=== PATIENT | female | born 1960 | race Caucasian/White ===

== ENCOUNTER → 2018-06-19 | Outpatient (CLI) | payer OTHER ==
[~2018-06-19] MED LIST: ALLEGRA180 MG PO; ARIXTRA SUBQ; GLUCOPHAGE1000 MG PO; HYDROCODON-ACE1 EAC7 PO; LOSARTAN-HCTZ1 EACH PO; METFORMIN PO; MOBIC15 MG PO; OXYIR5 MG; PERCOCET 5-3251 EACH PO; PREMARIN0.625 MG PO; PRILOSEC 20 MG20 MG PO; PROBIOTIC1 EACH PO; PROPRANOLOL 8080 MG PO; PROVIGIL 100 M100 MG PO; VENLAFAXINE HC225 MG PO
== END ==
LOC: M.RAD 03-22 13:00
DX: Z12.31 Encounter for screening mammogram for malignant neoplasm of breast (principal)

== ENCOUNTER → 2018-06-21 | Outpatient (CLI) | payer OTHER | LOC: M.RAD 14:00 | DX: R92.8 Other abnormal and inconclusive findings on diagnostic imaging of breast (principal); N63.20 Unspecified lump in the left breast, unspecified quadrant ==

== ENCOUNTER → 2018-06-26 | Outpatient (CLI) | payer OTHER | LOC: M.RAD 07:22 | DX: Z53.8 Procedure and treatment not carried out for other reasons (principal) ==

== ENCOUNTER 2021-06-12 11:42 | Emergency (ER) | payer OTHER ==
[~2021-06-12] VITALS: Ht 172.7 cm; Wt 111.1 kg
[2021-06-12] MEDS ORDERED: HYDROCHLOROTHIA25 M1 PO (12:45)
[2021-06-12 12:46] LABS: ABSOLUTE BASOPHILS 0.1 thou/uL (0.0-0.2); ABSOLUTE EOSINOPHILS 0.2 thou/uL (0.0-0.7); ABSOLUTE LYMPHOCYTES 2.2 thou/uL (0.8-5.3); ABSOLUTE MONOCYTES 0.6 thou/uL (0.0-1.2); BASOPHILS 0.6 %; EOSINOPHILS 1.8 %; HEMATOCRIT 38.2 % (37.0-47.0); HEMOGLOBIN 12.4 gm/dL (12.0-15.0); LYMPHOCYTES 24.4 %; MCH 29.3 pg (26.0-34.0); MCHC 32.5 g/dL (28.0-37.0); MCV 90.1 fL (80.0-100.0); MONOCYTES 6.9 %; MPV 7.4 fl. (7.2-11.1); NUCLEATED RBCS 0 /100WBC; PLATELET COUNT* 305 thou/uL (150-400); POLYS 66.3 %; RBC 4.24 mil/uL (4.20-5.00); RDW-CV 13.9 % (10.5-14.5); WBC 9.1 thou/uL (4.0-11.0)
[2021-06-12] MEDS ORDERED: TOPAMAX100 MG PO (12:46)
[2021-06-12] MEDS ORDERED: LAMICTAL150 MG PO (12:48)
[2021-06-12] MEDS ORDERED: WELLBUTRIN XL300 MG PO (12:48)
[2021-06-12] MEDS ORDERED: DIAZEPAM 2MG TAB2 MG (12:49)
[2021-06-12] MEDS ORDERED: SANCTURA PO (12:49)
[2021-06-12] MEDS ORDERED: MACROBID 100 M100 M2 PO (12:50)
[2021-06-12] MEDS ORDERED: TALTZ AUTO80 MG/1 M1 (12:50)
[2021-06-12 12:53] LABS: CALCIUM 8.8 mg/dL (8.5-10.1); CREATININE 1.1 mg/dL (0.6-1.3); POTASSIUM 3.8 mmol/L (3.5-5.1)
[2021-06-12 12:57] LABS: ALBUMIN 3.5 g/dL (3.4-5.0); MAGNESIUM 2.1 mg/dL (1.8-2.4); TOTAL BILIRUBIN 0.5 mg/dL (<0.1-1.0); TOTAL PROTEIN 7.8 g/dL (6.4-8.2)
[2021-06-12 12:59] LABS: URINE BILIRUBIN NEGATIVE (Negative); URINE BLOOD NEGATIVE (Negative); URINE COLOR YELLOW; URINE GLUCOSE-RANDOM NEGATIVE (Negative); URINE KETONES NEGATIVE (Negative); URINE LEUKOCYTES-REFLEX TRACE (Negative); URINE NITRITE-REFLEX NEGATIVE (Negative); URINE PROTEIN NEGATIVE (Negative); URINE UROBILINOGEN 0.2 E.U./dl (0.2-1.0)
[2021-06-12 13:01] LABS: URINE CLARITY HAZY
[2021-06-12 13:06] LABS: BACTERIA-REFLEX >30 Many /HPF (None Seen); CASTS None Seen /LPF (None Seen); CRYSTALS None Seen /LPF (None Seen); SQUAMOUS 4-10 Moderate /LPF (0-3); URINE RBC 3-10 Few /HPF (0-2); URINE WBC-REFLEX 6-15 Few /HPF (0-5)
[2021-06-12 13:33] LABS: APTT 29.6 Seconds (25.0-31.3); INR 1.1; PROTIME 10.9 Seconds (9.20-11.50)
[2021-06-12 13:58] VITALS: BP 146/75
--- NOTE | 2021-06-14 09:00 | EKG ---
[place] [address] ELECTROCARDIOGRAM REPORT Name: SEBAS EMANUEL Room: [facility]#: [id number] Admission: 06/12/21 Attend Phys: Discharge: 06/12/21 Date of : 56 Date of Service: 06/12/21 1222 Report #: [id number] THIS REPORT FOR: //name// [facility] ED Test Date: 2021-06-12 Test Time: 12:22:31 Pat Name: SEBAS EMANUEL Department: Room: Gender: [employer] Tr[employer]: : 1960 Requested By: Gianfranco Mayer Order Number: [id number] MD: Israel Osborne Measurements Intervals [place] Rate: 69 P: 0 GA: 220 QRS: 49 QRSD: 160 T: 11 QT: 378 QTc: 405 Interpretive Statements Sinus rhythm Artifact in lead(s) I,II,III,aVR,aVL,aVF,V1,V2,V3,V4 Compared to ECG 10/17/2011 08:42:43 No significant changes noted Electronically Signed On 06-14-2021 9:00:04 CDT by Israel Osborne [email or web address] <ELECTRONICALLY SIGNED> By: Israel Osborne MD, FACC 06/14/21 0900 122 122 Israel Osborne MD, FACC /EPI
== END 2021-06-12 13:58 | disposition short-term general hospital (02) ==
LOC: M.ERS 11:42
PROVIDERS: Nurse Practitioner Psychiatric/Mental Health
DX: I62.00 Nontraumatic subdural hemorrhage, unspecified (principal); Z20.822 Contact with and (suspected) exposure to COVID-19; R41.82 Altered mental status, unspecified; R53.1 Weakness; G20 Parkinson's disease; E11.9 Type 2 diabetes mellitus without complications; I10 Essential (primary) hypertension; Z90.711 Acquired absence of uterus with remaining cervical stump; Z90.49 Acquired absence of other specified parts of digestive tract; Z79.899 Other long term (current) drug therapy; Z79.2 Long term (current) use of antibiotics; Z88.8 Allergy status to other drugs, medicaments and biological substances